=== PATIENT | male | born 1980 | race Hispanic/Latino ===

== ENCOUNTER → 2017-10-08 | Outpatient (CLI) | payer OTHER ==
[~2017-10-08] MED LIST: IOPAMIDOL 370 MG/ML 200 ML INFUS..BTL INJ ONE; SODIUM CHLORIDE 0.9% 50ML 50 ML ONE
--- NOTE | 2017-10-08 17:58 | Diagnostic Imaging Report ---
PROCEDURE: CT scan of the chest WITH intravenous contrast, using standard protocol. TECHNIQUE: The chest was scanned utilizing a multidetector helical scanner from the lung apex through the level of the adrenal glands after the IV administration of 100 cc of Isovue 370. Coronal and sagittal multiplanar reformations were obtained. COMPARISON: None. INDICATIONS: CHEST PAIN AFTER ELECTRICAL SHOCK FINDINGS: Lines/tubes: None. Lungs and Airways: Lungs are clear. No consolidation, masses, opacities or nodules. Airways are clear, without endobronchial lesions. Pleura: The pleural spaces are clear. Heart and mediastinum: The thyroid gland is normal. The heart and pericardium are within normal limits. Aorta is non-aneurysmal. Main pulmonary artery is normal in caliber. Lymph nodes: No mediastinal, hilar, or axillary adenopathy. Abdomen: Limited contrast-enhanced views of the upper abdomen show mildly decreased attenuation of the hepatic parenchyma compared to the spleen, suggesting mild steatosis. No focal lesions. Visualized spleen, pancreas, and adrenal glands, are unremarkable. 2.1 x 2.1 and 2.3 x 2.4 cm simple cyst in the superior pole of the left kidney. 1.0 x 1.0 centimeter simple cyst in the superior to mid left kidney. 1.7 x 1.3 cm cystic lesion in the anterior superior to mid left kidney, which measures slightly higher than simple fluid. Visualized right kidney is unremarkable. The adrenal glands are normal. Bones: No aggressive lytic lesions. Soft tissues are unremarkable. IMPRESSION: 1. Essentially unremarkable chest CT. 2. 1.7 cm cystic lesion in the anterior, superior to mid left kidney measures slightly higher than simple fluid. This may represent a mildly proteinaceous or hemorrhagic cyst. This may be further evaluated with renal ultrasound. Other visualized cystic lesions in the left kidney are consistent with simple cysts. 3. Mild hepatic steatosis. Morgan Perez M.D. Dictated by: Morgan Perez M.D. on 10/08/2017 at 18:02 Electronically approved by: Morgan Perez M.D. on 10/08/2017 at 18:02
--- NOTE | 2017-10-09 08:40 | Diagnostic Imaging Report ---
TECHNIQUE: Magnetic resonance imaging of the LEFT elbow and forearm was performed WITHOUT injected contrast. HISTORY: Numbness. COMPARISON: None available. FINDINGS: Ligaments and tendons: The medial and lateral collateral ligament complexes are intact. Common flexor and extensor tendon origins intact. Post surgical change to the distal triceps from repair. Ossification within the distal tendon. No edema. Biceps and brachialis. Nerve: Minimal posterior spurring of the medial humeral epicondyle axial image 14 abutting the ulnar nerve without mass effect. Ulnar nerve is unremarkable. No mass effect within the cubital tunnel. No accessory muscle. Median and radial nerves are unremarkable. No mass effect. Bone and bone marrow: No focal or infiltrative bone marrow replacing abnormality. No acute fracture. Articular cartilage: No focal lesions are seen. Soft tissues: Muscle bulk of the forearm is intact. No edema or atrophy. No finding of intersection syndrome. IMPRESSION: Minimal posterior spurring of the medial humeral epicondyle abutting the ulnar nerve without mass affect. Postsurgical changes to the olecranon and triceps tendon with partial ossification of the tendon distally. No tear. Signed by: Dr. Eladio Hagan M.D. on 10/09/2017 8:37 AM
== END ==
LOC: MRI 15:40
PROVIDERS: ATTEND Family Medicine
DX: R20.2 Paresthesia of skin (principal)
CPT/HCPCS: 71260; 73218; 73221; Q9967